=== PATIENT | female | born 1965 | race Two or more races ===

== ENCOUNTER 2019-05-17 12:04 | Day surgery (SDC) | payer OTHER ==
[~2019-05-17] VITALS: Ht 162.6 cm; Wt 74.9 kg
[2019-05-17 13:57] VITALS: Ht 162.6 cm; Wt 74.9 kg
[2019-05-17 14:39] VITALS: BP 140/81; PULSE 72; RESP 20
[2019-05-17] MEDS ORDERED: FENTAnyl 50 MCG/ML VIAL ONE (15:26)
[2019-05-17] MEDS ORDERED: MIDAZOLAM 1 MG/ML 2 ML INJ ONE ×2 (15:26)
[2019-05-17 15:43] VITALS: BP 132/85; PULSE 78; RESP 22
== END 2019-05-17 16:04 | disposition home or self-care (01) ==
LOC: GIL 12:04
PROVIDERS: ATTEND Internal Medicine
DX: Z12.11 Encounter for screening for malignant neoplasm of colon (principal)
CPT/HCPCS: J2250; J3010